=== PATIENT | female | born 1965 | race Caucasian/White ===

== ENCOUNTER 2017-07-16 15:45 | Outpatient (RCR) | payer OTHER ==
--- NOTE | 2017-07-01 16:20 | PT PLAN OF CARE ---
Physician: Ishan Waller MD Patient is being seen: 1-2x/week Therapist: Eduardo Ribeiro, PT, DPT Medical Diagnosis: S02.101A, R42, R26.81 Treatment Diagnosis: Same Date of Onset: 12/05/16 Date of Initial Evaluation: 02/27/17 Date patient was last seen: 06/30/17 Number of treatments: 12 Number of cancellations: 1 INTERVENTIONS: Neuromuscular Re-ed Gait Trg/Balance Trg Home Exercise Program Therapeutic Activities GOALS: 3 weeks: Pt will be able to move her head into cervical extension, cervical rotation to the R and L, and turn head in bed with 0/10 dizziness to improve function and QOL. 3 weeks: Pt will be able to perform supine to sit to standing transfers and ambulate with 0/10 dizziness to improve function and QOL. PATIENT'S GOAL: resolve this vertigo and learn the source of vertigo Status of Patient's Goals: Met, however, returns 1-2 weeks following each session Patient Compliance: Excellent Prognosis: Excellent Reasons for continuing therapy: This is a progress note for Lorraine Riddle. She reports that she is starting to see significant and lasting changes with her vertigo. She states that she had to perform her maneuvers less and did not feel the vertigo as much. She states that it is starting to finally feel better. She demonstrated positive tests with erna-caruso pike and R horizontal canal and negative with the L horizontal canal. However, we were able to clear via Nicolette maneuver quickly with no vertigo type symptoms with rolling or looking up following the session. With PT, we have been able to clear the posterior and horizontal canals each visit but the vertigo returns within a week to two weeks. Furthermore, it continues to present like BPPV and resolve like BPPV as a result we will continue to treat and resolve the signs and symptoms until she is asymptomatic. Special Tests: (-) OCULOMOTOR/VESTIBULAR TESTING: Spontaneous Nystagmus: Absent VOR Head Thrust (horizontal canal function): R: Negative, L: Negative Gaze- Evoked Nystagmus with fixation present:Absent VOR Head Thrust (posterior canal function): R: Positive, L: Positive Posterior Horizontal Head-Shaking Nystagmus ( - ) Gaze-Evoked Nystagmus with fixation suppressed: absent Smooth Pursuit Saccades VOR Cancellation: Normal POSITIONING TEST: Left Hallpike + Right Hallpike + Roll Test + to the R and - to the left All of these special tests were negative following each session, but symptoms return 1 to 2 to 3 weeks later. If you have any questions, please contact me at [phone]. Thank you, Eduardo Ribeiro, PT, DPT SANDRAD
[~2017-07-16 15:45] MED LIST: ALBU8.5H IH; ALPR-434 PO; ALPR-448 PO; ASPI-1471 PO; ATOR20TA22 PO; AZIT-17 PO; DIVSR125 PO; ESCI20TA8 PO; ESCI5TAB10 PO; ESOM20CA31 PO; ESOM40CA42 PO; ESTR10TA4; ESTR1VAG6 VG; FERR89TA PO; GABA-488 PO; GABAPENTIN; HYDR-385 PO; LEV125; LEV125 PO; LEVA15HF IH; LEVO137T23 PO; LEVO750T27 PO; LIPITOR; LOSA-51 PO; LOSA-54 PO; LOSARTAN/HCTZ; MAXALT; METH4TAB66 PO; MINO100C27 PO; MINOCYCLINE; OMEP-125 PO; OMEP-137 PO; OMEP40CA45 PO; PRED20TA6 PO; PROL120 PO; PROP60CA22 PO; RIZA10TA PO; TRILI135PT GT; VALA100062 PO; VALTREX; XANAX; ZOLP-1 PO; [UNRECOGNIZED DRUG - CODE] PO; [UNRECOGNIZED DRUG - OTHER]
[2017-08-29] MEDS ORDERED: ATOR20TA22 PO (11:01)
== END 2017-07-16 18:00 | disposition home or self-care (01) ==
LOC: PT 15:45
PROVIDERS: ATTEND Otolaryngology
DX: R42 Dizziness and giddiness (principal); H82.3 Vertiginous syndromes in diseases classified elsewhere, bilateral; R26.81 Unsteadiness on feet; S02.101A Fracture of base of skull, right side, initial encounter for closed fracture; V19.9XXA Pedal cyclist (driver) (passenger) injured in unspecified traffic accident, initial encounter; X58.XXXA Exposure to other specified factors, initial encounter

== ENCOUNTER → 2017-08-27 | Outpatient (CLI) | payer OTHER ==
--- NOTE | 2017-08-29 11:43 | RADIOLOGY IMAGING REPORT ---
FACILITY: [facility] PATIENT NAME: ABDOULAYE MCKEON : [id number] MR: [id number] V: [id number] EXAM DATE: [id number] ORDERING PHYSICIAN: DEQUAN BENOIT TECHNOLOGIST: Paulo Joshi PROCEDURE:US LEFT BREAST COMPARISON:Prior left breast Ultrasound 02/21/17 INDICATIONS:6 mo f/u FINDINGS: The well circumscribed ovoid hypoechoic nodule in the 9:30 position of the left breast 6cm from the nipple is again identified & appears relatively unchanged in size measuring approximately 1.4 x 1.4 x 0.7cm. This likely represents a fibroadenoma although given the solid nature a 6 month follow up left breast Ultrasound is recommended to document stability. Of note the patient will be due for her annual mammogram in 6 months as well. DIAGNOSTIC CATEGORY 3--PROBABLY BENIGN FINDING. RECOMMENDATIONS: SIX MONTH FOLLOW-UP DIAGNOSTIC MAMMOGRAM: BILATERAL BREASTS. SIX MONTH FOLLOW-UP ULTRASOUND: LEFT BREAST. IMPRESSION: BIRADS 3: Probably benign finding. 1. A 6 month follow up left breast Ultrasound & bilateral mammogram recommended as described above. Dictated by: Livia Theodore M.D. on 08/27/2017 at 16:35 Transcribed by: YUMIKO on 08/28/2017 at 15:54 Approved by: Livia Theodore M.D. on 08/29/2017 at 11:42 [facility]
== END ==
LOC: US 00:45
PROVIDERS: ATTEND Obstetrics & Gynecology
DX: N63.22 Unspecified lump in the left breast, upper inner quadrant (principal)

== ENCOUNTER → 2018-04-22 | Outpatient (CLI) | payer OTHER ==
[~2018-04-22] MED LIST changes: +ATOR40TA69 PO
--- NOTE | 2018-04-22 17:34 | RADIOLOGY IMAGING REPORT ---
FACILITY: [facility] [place] PATIENT NAME: ABDOULAYE MCKEON : [id number] MR: [id number] V: [id number] EXAM DATE: [id number] ORDERING PHYSICIAN: DEQUAN BENOIT TECHNOLOGIST: Batool Tavares PROCEDURE:BILATERAL DIAGNOSTIC DIGITAL MAMMOGRAM WITH CAD ASSISTED INTERPRETATION & 3D TOMOSYNTHESIS COMPARISON:Prior mammograms 01/31/17, 01/28/14, 01/31/12. INDICATIONS:6 MO F/U FINDINGS: Moderately heterogeneous fibroglandular tissue is seen throughout the breasts. The parenchymal pattern has remained stable when compared to the most recent mammograms allowing for difference in mammographic technique & patient positioning. The dominant mass in the approximate 9 o'clock position of the Left breast has been shown to represent a well circumscribed solid hypoechoic mass by Ultrasound which likely represents a fibroadenoma. A 6 month follow-up Left breast Ultrasound is recommended unless clinical findings warrant more immediate attention. Biopsy clip is noted in the medial upper portion of the Right breast from previous Ultrasound guided breast biopsy. DIAGNOSTIC CATEGORY 3--PROBABLY BENIGN FINDING. RECOMMENDATIONS: SIX MONTH FOLLOW-UP ULTRASOUND: LEFT BREAST. IMPRESSION: BIRADS 3: Probably benign finding. A 6 month follow-up Left breast Ultrasound recommended as described. Dictated by: Livia Theodore M.D. on 04/22/2018 at 16:00 Transcribed by: TRICIA on 04/22/2018 at 16:15 Approved by: Livia Theodore M.D. on 04/22/2018 at 17:33 [facility]
--- NOTE | 2018-04-22 17:35 | RADIOLOGY IMAGING REPORT ---
FACILITY: [facility] [place] PATIENT NAME: ABDOULAYE MCKEON : [id number] MR: [id number] V: [id number] EXAM DATE: [id number] ORDERING PHYSICIAN: DEQUAN BENOIT TECHNOLOGIST: Paulo Joshi RDMS, RYAN PROCEDURE:US LEFT BREAST COMPARISON:Prior Left breast Ultrasound 08/27/17. INDICATIONS:6 MO F/U FINDINGS: When compared to the prior study again noted is a well circumscribed ovoid hypoechoic mass just beneath the skin in the 9:30 position of the Left breast approximately 10cm from the nipple which measures 1.5 x 0.7 x 1.5cm and does not appear significantly changed. There is acoustic enhancement present. This likely represents fibroadenoma although due to the solid nature an additional 6 month follow-up Left mammogram is recommended to document stability over a 2 year period. DIAGNOSTIC CATEGORY 3--PROBABLY BENIGN FINDING. RECOMMENDATIONS: SIX MONTH FOLLOW-UP ULTRASOUND: LEFT BREAST. IMPRESSION: BIRADS 3: Probably benign finding. A 6 month follow-up Left breast Ultrasound recommend as described. Dictated by: Livia Theodore M.D. on 04/22/2018 at 15:55 Transcribed by: TRICIA on 04/22/2018 at 16:05 Approved by: Livia Theodore M.D. on 04/22/2018 at 17:34 [facility]
== END ==
LOC: MAMO 01:47
PROVIDERS: ATTEND Obstetrics & Gynecology
DX: R92.8 Other abnormal and inconclusive findings on diagnostic imaging of breast (principal)
CPT/HCPCS: 77062; 77066

== ENCOUNTER → 2018-05-21 | Outpatient (CLI) | payer OTHER ==
[~2018-05-21] MED LIST changes: +GABA-547 PO; +TRAZ50TA34 PO
--- NOTE | 2018-05-21 09:15 | RADIOLOGY IMAGING REPORT ---
FACILITY: [facility] [place] PATIENT NAME: Lorraine Riddle : 1965 MR: [id number] V: [id number] EXAM DATE: ORDERING PHYSICIAN: TERRA PATTON TECHNOLOGIST: Location: [facility] [place] Patient: Lorraine Riddle : 1965 Visit/Account:[id number] Date of Sevice: 05/21/2018 2 VIEWS CHEST INDICATION: Bronchitis and obstructive sleep apnea. Chest tightness for 3 days COMPARISON: X-ray examination chest July 09, 2017 FINDINGS: Heart size within normal limits. Lungs are clear without focal infiltrate, consolidation, effusion or pneumothorax. No significant connor tral bronchitic changes. Bones are without acute finding. IMPRESSION: 1. No acute cardiopulmonary process. Report Dictated By: Marcio Frank MD at 05/21/2018 9:11 AM Report E-Signed By: Marcio Frank MD at 05/21/2018 9:12 AM WSN:[id number]
== END ==
LOC: RAD 08:37
PROVIDERS: ATTEND Internal Medicine
DX: J40 Bronchitis, not specified as acute or chronic (principal); G47.33 Obstructive sleep apnea (adult) (pediatric); G43.909 Migraine, unspecified, not intractable, without status migrainosus; E03.9 Hypothyroidism, unspecified; S06.9X9A Unspecified intracranial injury with loss of consciousness of unspecified duration, initial encounter
CPT/HCPCS: 71046

== ENCOUNTER → 2018-11-23 | Outpatient (CLI) | payer OTHER ==
[~2018-11-23] MED LIST changes: +GABA-549 PO; +LORC10TA PO; +PHEN-580 PO; +PHEN15CA69 PO; +[UNRECOGNIZED DRUG - OTHER]
--- NOTE | 2018-11-24 16:43 | RADIOLOGY IMAGING REPORT ---
FACILITY: [facility] PATIENT NAME: ABDOULAYE MCKEON : [id number] MR: [id number] V: [id number] EXAM DATE: [id number] ORDERING PHYSICIAN: DEQUAN BENOIT TECHNOLOGIST: Amber Fisher RDMS PROCEDURE:US LEFT BREAST COMPARISON:Prior Left breast Ultrasound 04/22/18, 08/27/17, 02/21/17. INDICATIONS:Follow-up Left breast mass. FINDINGS: In the 9:30 position of the Left breast 10cm from the nipple again noted a circumscribed ovoid hypoechoic nodule measuring 1.6 x 0.75 x 1.7cm with acoustic enhancement. This nodule has gradually increased in size sense 2017. The appearance is very suggestive of a fibroadenoma although due to the gradual increase in size Ultrasound guided core biopsy is recommended. DIAGNOSTIC CATEGORY 4--SUSPICIOUS FOR MALIGNANCY. RECOMMENDATIONS: ULTRASOUND-GUIDED CORE BIOPSY: LEFT BREAST. IMPRESSION: BIRADS 4: Suspicious for malignancy. Ultrasound guided core biopsy of the circumscribed hypoechoic mass 9:30 position of the Left breast 10cm from the nipple is recommended. Dictated by: Livia Theodore M.D. on 11/23/2018 at 17:31 Transcribed by: TRICIA on 11/24/2018 at 11:23 Approved by: Livia Theodore M.D. on 11/24/2018 at 16:41 [facility]
== END ==
LOC: MAMO 00:34
PROVIDERS: ATTEND Obstetrics & Gynecology
DX: R92.8 Other abnormal and inconclusive findings on diagnostic imaging of breast (principal)

== ENCOUNTER 2018-12-07 15:05 | Outpatient (RCR) | payer OTHER ==
[2018-12-07 15:57] LABS: INR 0.9
[2018-12-09] MEDS ORDERED: ESCI20TA38 PO (16:03)
[2018-12-09] MEDS ORDERED: METH5TAB85 PO (16:03)
--- NOTE | 2018-12-14 09:55 | RADIOLOGY IMAGING REPORT ---
FACILITY: [facility] [place] PATIENT NAME: ABDOULAYE MCKEON : [id number] MR: [id number] V: [id number] EXAM DATE: [id number] ORDERING PHYSICIAN: DEQUAN BENOIT TECHNOLOGIST: Paulo Joshi RDMS, [facility] This report includes an Addendum and supersedes previous reports for this exam. PROCEDURE: BIOPSY LEFT BREAST COMPARISON: None. INDICATIONS: Left breast mass FINDINGS: The risk/benefits were explained to the patient. The patient signed a consent. The skin over the Left breast 9:30 position was prepped, draped & anesthetized with 1% Lidocaine. Utilizing Ultrasound guidance a 12 Gauge introducing needle was attached to the mass in the Left breast. Two 14 Gauge core biopsies were obtained through the mass. A localizing clip was placed within the mass post biopsy. IMPRESSION: Successful Ultrasound directed biopsy of the Left breast mass at the 9:30 position as described. A post biopsy clip mammogram in CC & MLO view demonstrated the biopsy clip centered within the biopsy lesion in the posterior third 9:30 position of the Left breast Successful clip localization within the biopsied mass at the 9:30 position as described. Dictated by: Geovani Armenta M.D. on 12/10/2018 at 15:59 Transcribed by: YUMIKO on 12/11/2018 at 9:10 Approved by: Thor Joaquin M.D. on 12/14/2018 at 9:54 [facility] ADDENDUM: FINDINGS: The pathology results from the Ultrasound guided Left breast biopsy performed on 12/10/18 were consistent with an epidermal inclusion cyst. DIAGNOSTIC CATEGORY 2--BENIGN FINDING. RECOMMENDATIONS: ROUTINE MAMMOGRAM AND CLINICAL EVALUATION. Dictated by: Livia Theodore M.D. on 12/17/2018 at 8:42 Transcribed by: TRICIA on 12/17/2018 at 9:35 Approved by: Livia Theodore M.D. on 12/18/2018 at 10:42 [facility]
[2018-12-17] MEDS ORDERED: NORE-4 PO (09:52)
[2018-12-17] MEDS ORDERED: SULF-198 PO (09:52)
[2018-12-17] MEDS ORDERED: ESTR1VAG6 VG (09:52)
[2018-12-17] MEDS ORDERED: VALA100062 PO (09:52)
== END 2018-12-10 18:00 | disposition home or self-care (01) ==
LOC: US 15:05
PROVIDERS: ATTEND Obstetrics & Gynecology
DX: L72.0 Epidermal cyst (principal)
CPT/HCPCS: 19083; 36415; 85610; 88305; 88344

== ENCOUNTER → 2018-12-30 | Outpatient (CLI) | payer OTHER ==
[~2018-12-30] MED LIST changes: +ESCI20TA38 PO; +METH5TAB85 PO; +NORE-4 PO; +SULF-198 PO
== END ==
LOC: LAB 11:16
PROVIDERS: ATTEND Obstetrics & Gynecology
DX: N61.1 Abscess of the breast and nipple (principal)
CPT/HCPCS: 87070; 87073